=== PATIENT | female | born 1990 | race American Indian/Alaskan Native ===

== ENCOUNTER 2021-03-11 13:58 | Emergency (ER) | payer OTHER ==
[2021-03-11 14:14] VITALS: BP 133/75
--- NOTE | 2021-03-11 14:38 | Emergency Department Report ---
ED Female HPI - General Chief complaint: Vaginal Bleeding Stated complaint: VAGINAL SPOTTING Time Seen by Provider: 03/11/21 14:22 Source: patient Mode of arrival: Ambulatory Limitations: No Limitations - History of Present Illness Initial comments: 30-year-old female presents to the ER today complaint of vaginal bleeding and . Patient states that she started with some vaginal spotting about 3 days ago and yesterday she started to pass clots. Patient states that she is alternate between 1 pad and 1 panty liner per day since the bleeding started and she states that neither the pad or panty liner has been soaked. She reports intermittent abdominal cramping but she states that she has been having this prior to the onset of the bleeding but has not gotten any worse since the bleeding started. Patient states that she had a confirmed urine test at the doctor's office March 01. Her last menstrual cycle was February 02. Her first POLLUTION CONTROL TECHNICIAN appointment is April 02. She is G1, P0. She denies any UTI symptoms or any abnormal vaginal symptoms. She denies any fever, chills or any other symptoms at this time. MD Complaint: vaginal bleeding, other () -: Sudden, days(s) (3) - Related Data Allergies Allergy/AdvReac Type Severity Reaction Status Date / Time No Known Allergies Allergy Unverified 03/11/21 14:11 ED Review of Systems ROS: Stated complaint: VAGINAL SPOTTING Other details as noted in HPI Comment: All other systems reviewed and negative Constitutional: denies: chills, fever Eyes: denies: eye pain, eye discharge, vision change ENT: denies: ear pain, throat pain, dental pain, hearing loss, epistaxis, congestion Respiratory: denies: cough, shortness of breath, wheezing Cardiovascular: denies: chest pain, palpitations Gastrointestinal: abdominal pain. denies: nausea, vomiting, diarrhea, consti pation, hematemesis, melena, hematochezia Genitourinary: other (abnormal vaginal bleeding). denies: urgency, dysuria, discharge Musculoskeletal: denies: back pain, joint swelling, arthralgia, myalgia Skin: denies: rash, lesions, change in color, change in hair/nails, pruritus Neurological: denies: headache, weakness, paresthesias Psychiatric: denies: anxiety, depression, auditory hallucinations, visual hallucinations, homicidal thoughts, suicidal thoughts Hematological/Lymphatic: denies: easy bleeding, easy bruising, swollen glands ED Past Medical Hx - Past Medical History Previous Medical History?: No - Surgical History Past Surgical History?: No ED Physical Exam - General Limitations: No Limitations General appearance: alert, in no apparent distress - Head Head exam: Present: atraumatic, normocephalic, normal inspection - Eye Eye exam: Present: normal appearance, PERRL, EOMI Pupils: Present: normal accommodation - ENT ENT exam: Present: normal exam, mucous membranes moist - Neck Neck exam: Present: normal inspection, full ROM - Respiratory Respiratory exam: Present: normal lung sounds bilaterally. Absent: respiratory distress - Cardiovascular Cardiovascular Exam: Present: regular rate, normal rhythm, normal heart sounds - GI/Abdominal GI/Abdominal exam: Present: soft. Absent: distended, tenderness, guarding - Neurological Exam Neurological exam: Present: alert, oriented X3, CN II-XII intact, normal gait - Psychiatric Psychiatric exam: Present: normal affect, normal mood - Skin Skin exam: Present: intact ED Course Vital Signs 03/11/21 14:13 Temperature 98.4 F Pulse Rate 74 Respiratory 18 Rate Blood Pressure 133/75 [Right] O2 Sat by Pulse 99 Oximetry ED Medical Decision Making - Lab Data Result diagrams: 03/11/21 14:42 03/11/21 14:42 - Radiology Data Radiology results: report reviewed Patient: VERO MEDINA MR# : [id number] : 1990 Acct:[id number] Age/Sex: 30 / F ADM Date: 03/11/21 Loc: ED Attending Dr: Ordering Physician: ZITA LEE Date of Service: 03/11/21 Procedure(s): US OB transvaginal Accession Number(s): [id number] cc: ZITA LEE US OB <= 14 weeks fetus, US OB transvaginal REASON FOR EXAM: spotting/preg TECHNIQUE: Transabdominal and transvaginal ultrasound was performed to evaluate a first trimester . COMPARISON: None available. FINDINGS: Uterus is enlarged, measuring 21.8 x 10 x 14.2 cm. There is heterogeneous echotexture of the uterus, most consistent with fibroid disease. Largest fibroid measures 13.3 x 8.5 x 14.2 cm. Uterine fibroids displace the endometrium. There appears to be 2 adjacent cystic structures within the endometrium which could reflect 2 intrauterine gestational sacs or single irregular gestational sac. The cystic structures measure 1.27 cm and 1.23 cm, corresponding to a gestational age of 6 weeks and 1 day and 6 weeks and 0 days, especially. No pole or yolk sac is identified at this time. Right ovary measures 5.2 x 4.3 x 3.5 cm with 3.2 cm cystic structure, likely reflect a corpus luteum cyst. Left ovary measures unremarkable sonographic appearance, measuring 4 x 1.7 x 4.6 cm. Small amount of fluid in the cul-de-sac may be physiologic. IMPRESSION: 1. Intrauterine of uncertain viability. 2 adjacent cystic structures in the endometrium, which may reflect 2 separate intrauterine gestational sacs or single irregular gestational sac. No discrete pole or yolk sac is identified at this time. In a hemodynamically stable patient, recommend follow-up with pelvic ultrasound in 7-10 days. 2. Enlarged fibroid uterus, as above. Signer Name: Destini Diez MD Signed: 03/11/2021 5:56 PM Workstation Name: [id number] Transcribed By: JS Dictated By: DESTINI DIEZ MD Electronically Authenticated By: DESTINI DIEZ MD Signed Date/Time: 03/11/211755 DD/ 47 TD/TT: - Medical Decision Making Labs/US reviewed -- CBC and CMP unremarkable. UA negative UTI. Rh O positive therefore no indication for rhogam today. Quant HCG 5159 and US shows Intrauterine of uncertain viability. 2 adjacent cystic structures in the endometrium, which may reflect 2 separate intrauterine gestational sacs or single irregular gestational sac. No discrete pole or yolk sac is identified at this time. In a hemodynamically stable patient, recommend follow- up with pelvic ultrasound in 7-10 days. 2. Enlarged fibroid uterus, as above. Patient currently resting comfortably. She is not in any distress. She reports no pain or worsening bleeding during stay. She has soft non tender abdomen. She is not toxic or ill appearing, and well hydrated. She is neurologically intact. Discussed lab/US results with patient. Copy of US given to patient. Recommend that she f/u with her OBYN sooner than April 02 for repeat US/lab testing but if her symptoms worsens to return to ED. Patient expressed understanding of instructions and agree with plan. Patient stable at time of discharge. Critical care attestation.: If time is entered above; I have spent that time in minutes in the direct care of this critically ill patient, excluding procedure time. ED Disposition Clinical Impression: Threatened miscarriage, Uterine fibroid Disposition: TO HOME OR SELFCARE Is pt being admited?: No Does the pt Need Aspirin: No Condition: Stable Instructions: Uterine Fibroids, Threatened Miscarriage, [id number] Additional Instructions: Take tylenol as needed for pain. I recommend that you follow-up with your POLLUTION CONTROL TECHNICIAN in the next 7 to 10 days for repeat testing and ultrasound to ensure viability of the . Recommend no strenuous activity of sexual intercourse until follow-up with OB. Return to the ER if your symptoms worsens or changes in any way. Referrals: PRIMARY CARE, [Primary Care Provider] - 3-5 Days Forms: Work/School Release Form(ED) Time of Disposition: 18:07
[2021-03-11 15:02] LABS: Basophils % (Auto) 0.5 % (0.0-1.8); Eosinophils # (Auto) 0.2 K/mm3 (0.0-0.4); Eosinophils % (Auto) 1.9 % (0.0-4.3); Hemoglobin 11.2 gm/dl (10.1-14.3); Lymphocytes # (Auto) 2.4 K/mm3 (1.2-5.4); Lymphocytes % (Auto) 29.4 % (13.4-35.0); Mean Corpuscular HGB Conc 34 % (30-34); Mean Corpuscular Volume 88 fl (79-97); Monocytes # (Auto) 0.7 K/mm3 (0.0-0.8); Monocytes % (Auto) 8.5 % (0.0-7.3); Platelet Count 410 K/mm3 (140-440); Red Blood Count 3.77 M/mm3 (3.65-5.03); Red Cell Distribution Width 14.3 % (13.2-15.2)
[2021-03-11 15:14] LABS: Alanine Aminotransferase 7 units/L (7-56); Albumin 3.8 g/dL (3.9-5); BUN/Creatinine Ratio 17; Blood Urea Nitrogen 17 mg/dL (7-17); Calcium 8.5 mg/dL (8.4-10.2); Hemolysis Index 4
[2021-03-11 15:57] LABS: Bilirubin,Urine NEG (Negative); Blood,Urine LG (Negative); Color,Urine Yellow (Yellow); Protein,Urine <15 mg/dL mg/dL (Negative); Urobilinogen,Urine < 2.0 mg/dL (<2.0); WBC,Urine < 1.0 /HPF (0.0-6.0)
--- NOTE | 2021-03-11 18:01 | Ultrasound Report ---
US OB <= 14 weeks fetus, US OB transvaginal REASON FOR EXAM: spotting/preg TECHNIQUE: Transabdominal and transvaginal ultrasound was performed to evaluate a first trimester pre gnancy. COMPARISON: None available. FINDINGS: Uterus is enlarged, measuring 21.8 x 10 x 14.2 cm. There is heterogeneous echotexture of the uterus, most consistent with fibroid disease. Largest fibroid measures 13.3 x 8.5 x 14.2 cm. Uterine fibroids displace the endometrium. There appears to be 2 adjacent cystic structures within the endometrium wh ich could reflect 2 intrauterine gestational sacs or single irregular gestational sac. The cystic str uctures measure 1.27 cm and 1.23 cm, corresponding to a gestational age of 6 weeks and 1 day and 6 we eks and 0 days, especially. No pole or yolk sac is identified at this time. Right ovary measures 5.2 x 4.3 x 3.5 cm with 3.2 cm cystic structure, likely reflect a corpus luteum cyst. Left ovary measures unremarkable sonographic appearance, measuring 4 x 1.7 x 4.6 cm. Small amount of fluid in the cul-de-sac may be physiologic. IMPRESSION: 1. Intrauterine of uncertain viability. 2 adjacent cystic structures in the endometrium, wh ich may reflect 2 separate intrauterine gestational sacs or single irregular gestational sac. No disc rete pole or yolk sac is identified at this time. In a hemodynamically stable patient, recommen d follow-up with pelvic ultrasound in 7-10 days. 2. Enlarged fibroid uterus, as above. Signer Name: Gurinder Diez MD Signed: 03/11/2021 5:56 PM Workstation Name: [id number]
--- NOTE | 2021-03-12 09:29 | Ultrasound Report ---
ULTRASOUND OBSTETRIC INDICATION / CLINICAL INFORMATION: SPOTTING. Clinical Gestational Age (GA) in weeks, days: 5, 2 TECHNIQUE: Transabdominal. COMPARISON: None available. FINDINGS: GESTATIONAL SAC: There are 2 irregular appearing collection in the endometrial cavity which measures 1.3 cm. This would correlate with a 6 week gestation. YOLK SAC: No yolk sac is seen. EMBRYO/FETUS: No pole is seen. UTERUS: The uterus is enlarged measuring 21.8 cm. There are uterine fibroids. The largest of which me asures approximately 13 x 9 x 14 cm. The endometrium measures 14 mm. ADNEXA: There is a 3.2 cm cyst in the right ovary. The left ovary is unremarkable. FREE FLUID: None. ADDITIONAL FINDINGS: None. IMPRESSION: 1. There are possible gestational sacs noted within the uterine cavity. No yolk sac or pole is seen. Correlation with serum beta hCG level is recommended. Follow-up ultrasound should be obtained a s clinically warranted to reevaluate for viable . 2. The uterus is enlarged and contains fibroids. The largest fibroid measures up to 14 cm. Signer Name: Akbar Francis MD Signed: 03/12/2021 9:25 AM Workstation Name: [id number]
== END 2021-03-11 18:29 | disposition home or self-care (01) ==
LOC: ED 13:58
DX: O20.0 Threatened abortion (principal); O26.891 Other specified pregnancy related conditions, first trimester; D25.9 Leiomyoma of uterus, unspecified; Z3A.01 Less than 8 weeks gestation of pregnancy
CPT/HCPCS: 36415; 76801; 76802; 76817; 80053; 81001; 83735; 84702; 85025; 86900; 86901

== ENCOUNTER 2021-04-17 09:29 | Emergency (ER) | payer OTHER ==
[2021-04-17 10:02] VITALS: BP 144/78
[2021-04-17 12:15] LABS: Basophils % (Auto) 0.5 % (0.0-1.8); Eosinophils # (Auto) 0.1 K/mm3 (0.0-0.4); Hemoglobin 10.9 gm/dl (10.1-14.3); Lymphocytes # (Auto) 2.5 K/mm3 (1.2-5.4); Lymphocytes % (Auto) 31.1 % (13.4-35.0); Mean Corpuscular HGB Conc 33 % (30-34); Mean Corpuscular Volume 89 fl (79-97); Monocytes # (Auto) 0.6 K/mm3 (0.0-0.8); Monocytes % (Auto) 7.6 % (0.0-7.3); Platelet Count 515 K/mm3 (140-440); Red Blood Count 3.71 M/mm3 (3.65-5.03); Red Cell Distribution Width 14.7 % (13.2-15.2)
[2021-04-17 12:38] LABS: Alanine Aminotransferase 15 units/L (7-56); Albumin 4.1 g/dL (3.9-5); Blood Urea Nitrogen 8 mg/dL (7-17); Calcium 8.9 mg/dL (8.4-10.2); Hemolysis Index 2
[2021-04-17 12:43] LABS: BUN/Creatinine Ratio 11
--- NOTE | 2021-04-17 12:54 | Ultrasound Report ---
ULTRASOUND OBSTETRIC REASON FOR EXAM: BLEEDING AND CRAMPING TECHNIQUE: Transabdominal and transvaginal ultrasound was performed to evaluate a first trimester pre gnancy. COMPARISON: 03/11/2021 FINDINGS: Uterus is enlarged measuring 20.8 x 14.8 x 15.2 cm. There is heterogeneous echotexture of the uterus with multiple myometrial masses, compatible with fibroids. Endometrial stripe measures 1.5 cm. No dis crete IUP as visualized. Previously described intrauterine cystic structure is no longer seen. Both ovaries are obscured by shadowing from bowel gas. No cystic or solid mass identified. No significant free fluid. IMPRESSION: No intrauterine is identified. Previously described intrauterine cystic structure is no víctor mini seen. Findings are concerning for spontaneous . Recommend correlation with beta hCG and c ontinued sonographic follow-up, as clinically indicated. Signer Name: Gurinder Diez MD Signed: 04/17/2021 12:50 PM Workstation Name: [id number]
--- NOTE | 2021-04-17 13:39 | Emergency Department Report ---
ED General Adult HPI - General Chief complaint: Vaginal Bleeding Stated complaint: 10WKS PREG BLEEDING Time Seen by Provider: 04/17/21 10:45 Source: patient Mode of arrival: Ambulatory Limitations: No Limitations - History of Present Illness Initial comments: 30-year-old -[place] female patient presents with complaints of vaginal bleeding and passage of large clot last night. Patient states she is currently 10 weeks and has been having vaginal bleeding since the start of her . She states she has only been using about 1 pad per day. She denies any fever/chills/sweats, dysuria/hematuria/urinary frequency, vaginal dischar ge/dyspareunia, stool changes, or history of abdominal surgeries. No current pain per patient. She states she is currently following with Dr. Cote from [facility]. She is G1, . Patient states she was diagnosed with large uterine fibroids with her first OB ultrasound. -: Sudden Severity scale (0 -10): 7 - Related Data Allergies Allergy/AdvReac Type Severity Reaction Status Date / Time No Known Allergies Allergy Unverified 03/11/21 14:11 ED Review of Systems ROS: Stated complaint: 10WKS PREG BLEEDING Other details as noted in HPI Constitutional: denies: chills, diaphoresis, fever, malaise, weakness Respiratory: denies: shortness of breath Cardiovascular: denies: chest pain Gastrointestinal: abdominal pain. denies: nausea, vomiting, diarrhea, con stipation, hematemesis Genitourinary: denies: urgency, dysuria, frequency, hematuria, discharge, dyspareunia Musculoskeletal: denies: back pain Skin: denies: change in color Hematological/Lymphatic: denies: easy bleeding ED Past Medical Hx - Past Medical History Previous Medical History?: No - Surgical History Past Surgical History?: No ED Physical Exam - General Limitations: No Limitations General appearance: alert, in no apparent distress, obese - Head Head exam: Present: atraumatic, normocephalic - Eye Eye exam: Present: normal appearance - Neck Neck exam: Present: normal inspection - Respiratory Respiratory exam: Present: normal lung sounds bilaterally. Absent: respiratory distress - Cardiovascular Cardiovascular Exam: Present: regular rate, normal rhythm. Absent: systolic murmur, diastolic murmur, rubs, gallop - GI/Abdominal GI/Abdominal exam: Present: soft, normal bowel sounds. Absent: distended, tenderness, guarding, rebound, rigid - Back Exam Back exam: Present: full ROM. Absent: CVA tenderness (R), CVA tenderness (L) - Neurological Exam Neurological exam: Present: alert, oriented X3, normal gait - Psychiatric Psychiatric exam: Present: normal affect, normal mood - Skin Skin exam: Present: warm, dry, intact, normal color. Absent: rash, cyanosis, diaphoretic ED Course Vital Signs 04/17/21 10:01 Temperature 97.8 F Pulse Rate 74 Respiratory 16 Rate Blood Pressure 144/78 [Right] O2 Sat by Pulse 98 Oximetry ED Medical Decision Making - Lab Data Result diagrams: 04/17/21 11:58 04/17/21 11:58 Lab Results 04/17/21 04/17/21 04/17/21 Range/Units 11:58 11:58 11:58 WBC 8.1 (4.5-11.0) K/mm3 RBC 3.71 (3.65-5.03) M/mm3 Hgb 10.9 (10.1-14.3) gm/dl Hct 33.0 (30.3-42.9) % MCV 89 (79-97) fl MCH 29 (28-32) pg MCHC 33 (30-34) % RDW 14.7 (13.2-15.2) % Plt Count 515 H (140-440) K/mm3 Lymph % (Auto) 31.1 (13.4-35.0) % [place] % (Auto) 7.6 H (0.0-7.3) % Eos % (Auto) 1.0 (0.0-4.3) % Baso % (Auto) 0.5 (0.0-1.8) % Lymph # (Auto) 2.5 (1.2-5.4) K/mm3 [place] # (Auto) 0.6 (0.0-0.8) K/mm3 Eos # (Auto) 0.1 (0.0-0.4) K/mm3 Baso # (Auto) 0.0 (0.0-0.1) K/mm3 Seg Neutrophils % 59.8 (40.0-70.0) % Seg Neutrophils # 4.9 (1.8-7.7) K/mm3 Sodium (137-145) mmol/L Potassium (3.6-5.0) mmol/L Chloride (98-107) mmol/L Carbon Dioxide (22-30) mmol/L Anion Gap mmol/L BUN (7-17) mg/dL Creatinine (0.6-1.2) mg/dL Estimated GFR ml/min BUN/Creatinine Ratio % Glucose (65-100) mg/dL Calcium (8.4-10.2) mg/dL Total Bilirubin (0.1-1.2) mg/dL AST (5-40) units/L ALT (7-56) units/L Alkaline Phosphatase (35-129) units/L Total Protein (6.3-8.2) g/dL Albumin (3.9-5) g/dL Albumin/Globulin Ratio % HCG, Quant 3212 H (0-4) mIU/mL Blood Type O POSITIVE 04/17/21 Range/Units 11:58 WBC (4.5-11.0) K/mm3 RBC (3.65-5.03) M/mm3 Hgb (10.1-14.3) gm/dl Hct (30.3-42.9) % MCV (79-97) fl MCH (28-32) pg MCHC (30-34) % RDW (13.2-15.2) % Plt Count (140-440) K/mm3 Lymph % (Auto) (13.4-35.0) % [place] % (Auto) (0.0-7.3) % Eos % (Auto) (0.0-4.3) % Baso % (Auto) (0.0-1.8) % Lymph # (Auto) (1.2-5.4) K/mm3 [place] # (Auto) (0.0-0.8) K/mm3 Eos # (Auto) (0.0-0.4) K/mm3 Baso # (Auto) (0.0-0.1) K/mm3 Seg Neutrophils % (40.0-70.0) % Seg Neutrophils # (1.8-7.7) K/mm3 Sodium 140 (137-145) mmol/L Potassium 3.5 L (3.6-5.0) mmol/L Chloride 104.3 (98-107) mmol/L Carbon Dioxide 25 (22-30) mmol/L Anion Gap 14 mmol/L BUN 8 (7-17) mg/dL Creatinine 0.7 (0.6-1.2) mg/dL Estimated GFR > 60 ml/min BUN/Creatinine Ratio 11 % Glucose 84 (65-100) mg/dL Calcium 8.9 (8.4-10.2) mg/dL Total Bilirubin 0.20 (0.1-1.2) mg/dL AST 19 (5-40) units/L ALT 15 (7-56) units/L Alkaline Phosphatase 62 (35-129) units/L Total Protein 7.5 (6.3-8.2) g/dL Albumin 4.1 (3.9-5) g/dL Albumin/Globulin Ratio 1.2 % HCG, Quant (0-4) mIU/mL Blood Type - Radiology Data Radiology results: report reviewed ULTRASOUND OBSTETRIC REASON FOR EXAM: BLEEDING AND CRAMPING TECHNIQUE: Transabdominal and transvaginal ultrasound was performed to evaluate a first trimester . COMPARISON: 03/11/2021 FINDINGS: Uterus is enlarged measuring 20.8 x 14.8 x 15.2 cm. There is heterogeneous echotexture of the uterus with multiple myometrial masses, compatible with fibroids. Endometrial stripe measures 1.5 cm. No discrete IUP as visualized. Previously described intrauterine cystic structure is no longer seen. Both ovaries are obscured by shadowing from bowel gas. No cystic or solid mass identified. No significant free fluid. IMPRESSION: No intrauterine is identified. Previously described intrauterine cystic structure is no longer seen. Findings are concerning for spontaneous . Recommend correlation with beta hCG and continued sonographic follow-up, as clinically indicated. - Medical Decision Making 30-year-old -[place] female patient presents with complaints of vaginal bleeding and passage of large clot last night. Patient states she is currently 10 weeks and has been having vaginal bleeding since the start of her . She states she has only been using about 1 pad per day. She denies any fever/chills/sweats, dysuria/hematuria/urinary frequency, vaginal di scharge/dyspareunia, stool changes, or history of abdominal surgeries. No current pain per patient. She states she is currently following with Dr. Cote from [facility]. She is G1, . Patient states she was diagnosed with large uterine fibroids with her first OB ultrasound. Hemoglobin is stable. Ultrasound is negative for any IUP. hCG level noted to be approximately 3200. Patient states at her last visit with her SKEET OPERATOR, her hCG was 26,000. This is likely a spontaneous . Patient declines UA and states she will follow up with her SKEET OPERATOR in 2 days. No pain at this time and her vitals are within normal limits. She is well-appearing. Patient is stable for discharge home. Strict return precautions were discussed in great detail with patient who verbalized understanding. Critical care attestation.: If time is entered above; I have spent that time in minutes in the direct care of this critically ill patient, excluding procedure time. ED Disposition Clinical Impression: Spontaneous Disposition: DC-01 TO HOME OR SELFCARE Is pt being admited?: No Condition: Stable Instructions: Miscarriage Additional Instructions: Please follow up with your OBGYN
== END 2021-04-17 13:44 | disposition home or self-care (01) ==
LOC: ED 09:29
DX: O03.9 Complete or unspecified spontaneous abortion without complication (principal); Z3A.10 10 weeks gestation of pregnancy
CPT/HCPCS: 36415; 76801; 76817; 80053; 84702; 85025; 86900; 86901